=== PATIENT | female | born 1965 | race Caucasian/White ===

== ENCOUNTER 2025-02-22 19:36 | Emergency (ER) | payer OTHER ==
[~2025-02-22] VITALS: Ht 172.7 cm; Wt 68.0 kg
[2025-02-22] MEDS ORDERED: KEPPRA500 MG PO (19:51)
[2025-02-22] MEDS ORDERED: DEPAKOTE ER500 MG PO (19:51)
[2025-02-22] MEDS ORDERED: LANOXIN125 MCG PO (19:52)
[2025-02-22] MEDS ORDERED: SYNTHROID50 MCG PO (19:53)
[2025-02-22] MEDS ORDERED: ELIQUIS5 MG PO (19:54)
[2025-02-22] MEDS ORDERED: SINGULAIR10 MG PO (19:55)
[2025-02-22] MEDS ORDERED: METOPROLOL SUCC25 MG PO (19:55)
[2025-02-22] MEDS ORDERED: METOCLOPRAMIDE HCL 10 MG in DEXTROSE 5 % IN WATER 50 ML IV ONE (22:00)
[2025-02-22] MEDS ORDERED: 0.9 % SODIUM CHLORIDE 500 ML IV ONE (22:00)
[2025-02-22] MEDS ORDERED: FAMOTIDINE/PF 20 MG/2 ML VIAL IV ONE (22:00)
[2025-02-22] MEDS ORDERED: KETOROLAC TROMETHAMINE 30 MG VIAL IV ONE (22:00)
== END 2025-02-23 10:01 | disposition home or self-care (01) ==
LOC: ER 19:37
DX: G43.909 Migraine, unspecified, not intractable, without status migrainosus (principal); Z88.5 Allergy status to narcotic agent; Z88.6 Allergy status to analgesic agent